=== PATIENT | female | born 1945 | race Caucasian/White ===

== ENCOUNTER → 2019-07-23 | Outpatient (CLI) | payer OTHER ==
[~2019-07-23] MED LIST: AMBIEN 10 MG TA10 MG PO; APPEAREX2500 MCG PO; ASPIRIN EC81 M1 PO; CALTRATE-600 W1 EACH PO; EVISTA PO; LISINOPRIL-HCT1 EACH PO; LISINOPRIL10 MG; LYRICA100 MG; ONE DAILY WOME0.4 MG PO; PROTONIX40 MG PO; VITAMIN E400 UNIT PO
== END ==
LOC: M.LAB 05:33
DX: E87.6 Hypokalemia (principal)